=== PATIENT | male | born 1950 | race Caucasian/White ===

== ENCOUNTER 2024-09-22 06:26 | Day surgery (SDC) | payer MEDICARE, BC, SELFPAY ==
[2024-09-22 09:46] LABS: Glucose - Point of Care 94 mg/dl (70-99)
== END 2024-09-22 11:47 | disposition home or self-care (01) ==
LOC: GI 06:26
PROVIDERS: ATTENDING PHYSICIAN Specialist
DX: Z12.11 Encounter for screening for malignant neoplasm of colon (principal); K57.30 Diverticulosis of large intestine without perforation or abscess without bleeding; Z86.0101 Personal history of adenomatous and serrated colon polyps
CPT/HCPCS: G0105; 82962